=== PATIENT | female | born 1965 | race African-American/Black ===

== ENCOUNTER 2021-02-06 07:16 | Emergency (ER) | payer SELFPAY ==
--- NOTE | ~2021-02-06 | XR_ITS ---
EXAMINATION: XR ankle RT min 3V DATE: 02/06/2021 09:19 INDICATION: Lateral right ankle pain post fall TECHNIQUE: Anteroposterior, oblique, mortise, and lateral views of the right ankle were obtained. COMPARISON: None. FINDINGS: Comminuted extra articular fracture at the distal diaphysis and metaphysis of the right fibula. This includes a typical Latham type B oblique metaphyseal fracture plane which extends to the medial cortex at the level of the tibiotalar joint line with 3 mm posterolateral displacement. There is a second o blique fracture plane extending into the diaphysis extending across the medial cortex 9 cm proximal t o the tibiotalar joint line and resulting in a nondisplaced medial sided butterfly fragment. No other fractures identified. Specifically the medial and posterior malleoli as well as the talar dome remai n intact. Ankle mortise remains congruent. Joint spaces are normal. No right ankle joint effusion. Do minant soft tissue swelling about the lateral side of the ankle and distal lower leg. IMPRESSION: 1. Minimally displaced comminuted fractures of the distal right fibula. Reviewed, dictated and finalized at location A.
--- NOTE | ~2021-02-06 | XR_ITS ---
EXAMINATION: XR tibia fibula RT 2V DATE: 02/06/2021 10:01 INDICATION: Distal right fibular fracture TECHNIQUE: 1. Anteroposterior and lateral views of the right tibia and fibula were obtained. COMPARISON: Right ankle radiographs dated 02/06/2021 FINDINGS: Again seen is a minimally displaced comminuted fractures of the distal metadiaphyseal region of the r ight fibula as previously detailed. No other fractures identified. Alignment remains near-anatomic. N ormal joint spaces at the right ankle and hindfoot and visualized portion of the right knee. No right ankle joint effusion. Soft tissue swelling about the lateral aspect of the distal lower leg and ankl e. IMPRESSION: 1. Minimally displaced comminuted fracture of the distal metadiaphysis of the right fibula. No other fractures identified. Reviewed, dictated and finalized at location A. IMPRESSION: 1. Minimally displaced comminuted fracture of the distal metadiaphysis of the r ight fibula. No other fractures identified.
[2021-02-06 07:31] VITALS: BP 119/77; PULSE 81; RESP 18; TEMP 36.6; O2SAT 99
[2021-02-06 09:00] VITALS: BP 116/70; PULSE 80; RESP 18; O2SAT 97
--- NOTE | 2021-02-06 09:16 | ED.LOWEXIN ---
HPI - Extremity Injury (Lower) General Chief Complaint: Extremity Injury, Lower Stated Complaint: FELL- ANKLE PAIN Time Seen by Provider: 02/06/21 09:05 Source: patient Mode of arrival: wheelchair Limitations: no limitations History of Present Illness HPI Narrative: This is a 55-year-old female that presents to the emergency department for right ankle pain and swelling since last night. Reports she tripped over a curb. Reports falling forward. Denies hitting her head or loss of consciousness. No other injuries. Reports since she has had pain and swelling of the ankle specially in the lateral aspect. The pain is worse with movement and relieved with rest. Denies numbness. Related Data Allergies Allergy/AdvReac Type Severity Reaction Status Date / Time No Known Allergies Allergy Verified 02/06/21 07:33 Review of Systems Review of Systems: CONSTITUTIONAL: Denies fever MUSCULOSKELETAL: Reports joint pain, and myalgia. NEUROLOGIC: Denies numbness All systems reviewed & are unremarkable except as noted in HPI and below PMFSH Past Medical History Medical History (Updated 02/06/21 @ 11:38 by Carli Stone PA-C) No active medical problems Social History Social History (Updated 02/06/21 @ 09:18 by Carli Stone PA-C) Smoking status: Never smoker Substance use: never Exam Narrative: GENERAL: Well-appearing, well-nourished, and in no acute distress. HEAD: Normocephalic, atraumatic. EYES: EOMI. EXTREMITIES: Decreased active range of motion of the right ankle due to pain. Mild edema about the right lateral malleoli. Normal DP pulses. Normal sensation SKIN: Warm, dry, no rash. NEURO: No focal deficits. Alert and oriented x3. PSYCH: Normal mood and affect Course Vital Signs Vital signs: Vital Signs Temperature 98 F 02/06/21 07:31 Pulse Rate 81 02/06/21 07:31 Respiratory Rate 18 02/06/21 07:31 Blood Pressure 119/77 02/06/21 07:31 Pulse Oximetry 99 02/06/21 07:31 Temperature 98 F 02/06/21 07:31 Pulse Rate 79 02/06/21 11:02 Respiratory Rate 16 02/06/21 11:02 Blood Pressure 120/81 02/06/21 11:02 Pulse Oximetry 100 02/06/21 11:02 Procedures Orthopedic Splinting/Casting Injury #1: Splinting/Casting Date: 02/06/21 Splinting/Casting Time: 11:37 Side: right Lower Extremity Injury Location: ankle Lower Extremity Immobilizer: posterior splint Splint: customized in ED OCL: posterior Pre-Procedure Neuro Vascular Exam: normal Post-Procedure Neuro Vascular Exam: normal Other Orthopedic Equipment: crutches MDM - Extremity Injury (Lower) MDM Narrative Medical decision making narrative: Patient presents to the emergency department for right ankle pain after a fall yesterday. Patient is neurovascularly intact. Vitals are stable. Denies any other injuries. Right ankle x-ray shows a minimally displaced comminuted fracture of the distal right fibula. No other fractures identified on tib-fib x-ray. Patient placed in a short leg posterior and given crutches. Will be given orthopedics for follow-up. She is stable and felt appropriate for further outpatient evaluation. She was given warnings to return to the ER Imaging Data Radiologist's impression: ITS Impressions Ankle X-Ray 02/06/21 09:20 IMPRESSION: 1. Minimally displaced comminuted fractures of the distal right fibula. Tibia/Fibula X-Ray 02/06/21 10:05 IMPRESSION: 1. Minimally displaced comminuted fracture of the distal metadiaphysis of the right fibula. No other fractures identified. Critical Care Time Critical Care Time Critical Care Time: No Discharge Plan Discharge Clinical Impression: Closed traumatic displaced fracture of distal end of fibula Patient Disposition: Home, Self-Care Condition: Stable Instructions: Ankle Fracture (ED) Additional Instructions: Return to the emergency department if you ex
[2021-02-06] MEDS: HYDROcodone/acetaminophen (*CRX) 5-325 MG TABLET 1 TAB PO (10:47)
[2021-02-06 11:02] VITALS: BP 120/81; PULSE 79; RESP 16; O2SAT 100
== END 2021-02-06 12:06 | disposition home or self-care (01) ==
PROVIDERS: Emergency Provider Emergency Medicine
DX: S89.391A Other physeal fracture of lower end of right fibula, initial encounter for closed fracture (principal); W10.1XXA Fall (on)(from) sidewalk curb, initial encounter
CPT/HCPCS: 29515; 73590; 73610; 99284; A9270

== ENCOUNTER 2021-02-08 09:47 | Outpatient (CLI) | payer SELFPAY ==
[2021-02-08 11:20] LABS: EDCOVIDSCREEN Negative (Negative)
== END 2021-02-08 09:48 | disposition home or self-care (01) ==
PROVIDERS: Visit Provider Orthopaedic Surgery
DX: Z01.812 Encounter for preprocedural laboratory examination (principal); Z20.822 Contact with and (suspected) exposure to COVID-19
CPT/HCPCS: 87426; C9803

== ENCOUNTER 2021-02-10 03:19 | Day surgery (SDC) | payer SELFPAY ==
[2021-02-07 16:01] VITALS: BMI 33.9
[2021-02-10] VITALS (12 sets, daily range): BP systolic 110–139; BP diastolic 71–95; PULSE 66–84; RESP 8–20; TEMP 36.1–36.8; O2SAT 94–100
--- NOTE | ~2021-02-10 | XR_ITS ---
EXAMINATION: XR surgery orthopedic EXAM DATE: 02/10/2021 14:55 INDICATION: Right ankle ORIF. TECHNIQUE: Fluoroscopy used during right ankle ORIF performed by Dr. Yahir Isaac MD. Radiol ogist was not present for the imaging or procedure. Total fluoroscopic time of 68 seconds. The DAP for this procedure was 0.69 mGym2. A total of 8 images sent to PACS from the exam. FINDINGS: There is an oblique fracture through the right fibular distal metaphysis. Position, alignme nt anatomic. Images demonstrate a fibular plate, supporting screws, and also syndesmotic repair ancho r along the tibia medially. Correlate with procedure note. IMPRESSION: Fluoroscopy used during right ankle ORIF. Reviewed, dictated and finalized at location B.
--- NOTE | 2021-02-10 12:22 | WPDANESEPPF ---
Anes - Initial Pre Proc Eval Procedure: Operation Date: 02/10/21 12:00 Proposed Procedures p Open Reduction Internal Fixation Right Lateral Malleolus, Possible Open Reduction Internal Fixation Tibia/Fibula Syndesmosis - Yahir Isaac MD Date/Time: 02/10/21 12:22 Surgeon: Yahir Isaac MD Pre Op Diagnosis: Right Lateral Melleolus Fracture Patient Data Age: 55 Gender: F Height: 1.68 m Weight: 95.4 kg Allergies Allergy/AdvReac Type Severity Reaction Status Date / Time No Known Allergies Allergy Verified 02/10/21 11:46 Home Medications Medication Instructions Recorded Confirmed Type hydrocodone-acetaminophen 1 tablet PO Q6H PRN #14 tablet 02/06/21 02/10/21 Rx Patient hx anesthesia problems: none Family hx anesthesia problems: none PMFSH Past Medical History Medical History No active medical problems Surgical History Surgical History No significant past surgical history Social History Social History Smoking packs per day: 1 Smoking cigarettes per day: 20.0 Years smoked: 13 Smoking pack-years: 13.00 Smoking status: Never smoker Smoking end date: 02/08/92 Alcohol intake: current Substance use: never Spiritual care concerns: No Anes - Eval Final PreProcedure Day of Procedure 02/10/21 12:22 Patient weight: obese Heart: regular rate and rhythm Lungs: decreased breath sounds Airway: Mallampati scale class II Neurological: alert and oriented Last oral intake: >/= 8 hours ASA classification: II Emergent: no Anesthetic plan: proceed Anesthesia type and monitoring: general LMA and standard monitoring Informed Consent: The patient's anesthetic plan and its attendant risks and benefits were discussed with the patient/family/POA. Questions were solicited and answers provided to the satisfaction of the patient/family/POA.
--- NOTE | 2021-02-10 12:32 | SUR.PREOP ---
1145-HAIR REMOVAL/SCRUB WITHHELD R/T DISCOMFORT AND INSTABILITY.
[2021-02-10] MEDS: LACTATED RINGERS 1,000 ML 30 ML IV CONT ×2 (12:40→15:13)
[2021-02-10] MEDS: KETOROLAC 15 MG/ML VIAL (*BKC) IV PUSH (12:41)
--- NOTE | 2021-02-10 12:46 | WPDHPUPDATE1 ---
History and Physical Update Update Date/Time: 02/10/21 12:46 History and Physical has been reviewed, including an updated exam of the patient. There are NO changes in the patient's condition. Risks, benefits, and alternatives have been discussed and questions answered. Patient agrees to proceed with procedure.
[2021-02-10] MEDS: ceFAZolin 2 GM/D5W 50 ML 2 GM/50 ML BAG IVPB (13:02)
[2021-02-10] MEDS: fentaNYL CITRATE INJ (*CRX) 100 MCG/2 ML VIAL 25 MCG IV PUSH ×5 (15:30→17:01)
--- NOTE | 2021-02-10 15:40 | P.OP_ITS ---
Procedure Note - Detailed Date of Procedure 02/10/21 Pre-op Diagnosis Right Lateral Malleolus Fracture 2. Syndesmosis disruption Post-op Diagnosis same Procedure Performed 1. ORIF distal fibula fracture, right. 2. ORIF ankle syndesmosis, right. Surgeon Yahir Isaac MD Director Of Clinical Applications Birgit Fry PA-C Anesthesia general Findings Significant comminution and proximal extension. Proximal bone fragment was very robust. Plate was contoured and rotated to allow for a posterior-lateral application on the flat surface of the proximal fibula. Multiple fracture lines were provisionally held with K-wires. The fracture fragments keyed anatomically which indicated excellent reduction of fibular length. Syndesmosis gapping was occurring and additional fixation with a syndesmosis tight rope provided excellent stability. Description of Procedure With a general anesthetic was administered. The limb was prepped and draped in the usual sterile fashion with a well-padded tourniquet high on the thigh. A bump was placed under the hip. The limb was exsanguinated and the tourniquet inflated to 300 millimeters of mercury during the procedure. A longitudinal incision was created at the distal fibula. Careful dissection was carried down to bone. Perineal nerve branches were protected. The fracture was carefully exposed. Callus and debris was irrigated from the wound. The fracture was brought out to length. Reduction was accomplished with the reduction forceps. Provisional fixation held with several K-wires from anterior to posterior. Significant comminuted fragment through the middle area the fracture. The fix ation plate was contoured. Fixation was performed with a combination of cortical and cancellous screws. Locking screws were used distally and 2 proximally. A single anterior to posterior 2.7 mm lag screw was placed into the proximal posterior fragment. Fluoroscopy was used throughout the procedure to confirm anatomic reduction and appropriate placement of the implants. The ankle mortise was tested and found to be unstable. An anterior medial fragment of the fibula was found to be where much of the motion was occurring. One of the screws was then exchanged for the suture button. This provided excellent reduction and stability of the ankle mortise. The tourniquet was released. Meticulous hemostasis was obtained. Wound was closed in layers with 2-0 Vicryl suture 3-0 Monocryl suture and sheldon. A sterile splint with padding was applied. The patient was extubated and brought to the recovery room in stable condition. There were no complications. Physician assistant professor of education, Birgit Fry PA-C, required for surgery; including patient positioning, draping, tissue retraction, maintaining fracture reduction during provisional pin placement, wound closure, and dressing placement. Implants Arthrex periarticular distal fibula plate. Multiple locking and nonlocking screws 3.5 mm and 2.7 mm distally. 2.7 mm anterior to posterior lag screw. Syndesmosis tight rope. Estimated Blood Loss -20.0 Drains No Packing No Complications No immediate complications Condition stable Disposition PACU
[2021-02-10] MEDS: oxyCODONE HCL (*CRX) 5 MG TAB IR PO (16:41)
== END 2021-02-10 17:45 | disposition home or self-care (01) ==
PROVIDERS: Visit Provider Orthopaedic Surgery
PROC: (CPT 27829; principal; 2021-02-10 12:00)
DX: S82.61XA Displaced fracture of lateral malleolus of right fibula, initial encounter for closed fracture (principal); S93.431A Sprain of tibiofibular ligament of right ankle, initial encounter; W01.0XXA Fall on same level from slipping, tripping and stumbling without subsequent striking against object, initial encounter; Z87.891 Personal history of nicotine dependence; E66.9 Obesity, unspecified; Z68.33 Body mass index [BMI] 33.0-33.9, adult
CPT/HCPCS: 27829; 27792; A9270; C1713; C1769; J0690; J1100; J1170; J1885; J2250; J2370; J2405; J2704; J3010; J7120

== ENCOUNTER 2024-05-18 18:45 | Emergency (ER) | payer OTHER, SELFPAY ==
--- NOTE | ~2024-05-18 | XR_ITS ---
EXAM: XR foot LT min 3V DATE: 05/18/2024 19:20 HISTORY: jammed on stair edge today. 1st digit MTP joint . COMPARISON: None available. FINDINGS: Normal mineralization. Oblique fracture in the proximal aspect of the first distal phalanx , with intra-articular extension. No lytic or blastic lesion. Mild degenerative change at the first M TP joint. Status post hallux valgus repair/bunionectomy. Fixation staple in the first proximal phalan x. No erosion or periosteal change. Soft tissues within normal limits. IMPRESSION: Oblique, nondisplaced intra-articular fracture of the proximal aspect of the left first d istal phalanx. Reviewed, dictated and finalized at location K. ERCIAL CONSTRUCTION ESTIMATOR IMPRESSION: Oblique, nondisplaced intra-articular fracture of the proximal aspe ct of the left first distal phalanx.
--- NOTE | 2024-05-18 19:00 | ED_ITS ---
HPI - Extremity Injury (Lower) General Chief Complaint: Extremity Injury, Lower Stated Complaint: LT Foot Injury Time Seen by Provider: 05/18/24 18:50 Source: patient Mode of arrival: ambulatory Limitations: no limitations History of Present Illness HPI Narrative: Patient is a 58-year-old female who presents with pain in left great toe after stubbing it into this depth. Patient had surgery in 2004 on toe for bunion correction. Patient able to walk unassisted with some discomfort. Patient reports mild bruising and swelling. Related Data Home Medications Medication Instructions Recorded Confirmed ruxolitinib 1.5 % topical cream 1 applic topical PRN PRN Rash 05/18/24 05/18/24 (Opzelura) Allergies Allergy/AdvReac Type Severity Reaction Status Date / Time No Known Allergies Allergy Verified 05/18/24 19:07 Review of Systems Review of Systems: All systems reviewed & are unremarkable except as noted in HPI and below Constitutional: Constitutional: Denies body ache(s), Denies chills, Denies fatigue, Denies fever(s), Denies headache(s), Denies malaise and Denies weakness Eyes: Eyes: Denies blurry vision, Denies irritation and Denies loss of vision ENT: Denies otalgia, Denies headache(s), Denies nasal discharge, Denies sinus pain and Denies sore throat Cardiovascular: Cardiovascular: Denies chest pain, Denies irregular heart rhythm and Denies dyspnea Respiratory: Respiratory: Denies dyspnea Gastrointestinal: Gastrointestinal: Denies abdominal pain, Denies melena, Denies hematochezia, Denies diarrhea, Denies nausea and Denies vomiting Musculoskeletal: Musculoskeletal: Denies back pain, Denies myalgias and Reports arthralgias Integumentary/Breasts: Skin/Breast: Denies pruritus and Denies rash Neurologic: Denies headache(s), Denies loss of vision and Denies weakness Psychiatric: Psychiatric: Reports no additional psychiatric complaints Endocrine: Endocrine: Denies fatigue PMFSH Past Medical History Medical History No active medical problems Surgical History Surgical History Status post ORIF of fracture of ankle (~02/10/21) Right ORIF Distal Fibula Social History Social History Smoking packs per day: 1 Smoking cigarettes per day: 20.0 Years smoked: 13 Smoking pack-years: 13.00 Smoking status: Never smoker Smoking end date: 02/08/92 Alcohol intake: current Substance use: never Living arrangements: with family Spiritual care concerns: No Comments At time of signature, agree with nursing past medical, surgical, social and family history. There is no relevant family history pertinent to the presenting complaint. Exam Const: General: cooperative, healthy appearing, comfortable, no acute distress and well nourished Nutritional Appearance: well nourished Orientation/consciousness: patient oriented x3 Limitations: no limitations HENMT: Head: normal to inspection, normocephalic and atraumatic Ears: hearing grossly normal bilaterally and external ears normal Face/Nose/Sinus: Normal external nose present, normal facial exam and face symmetric Face and sinus: normal facial exam and face symmetric Mouth: Yes lip normal Eyes: General: appearance normal, both eyes and all related structures Alignment and Position: alignment normal and position normal Periorbital: periorbital findings normal Eyelids: eyelids normal Pupils: Equal, round and reactive pupils present EOM: EOMs intact bilaterally Neck: Neck: normal visual inspection, full ROM and supple Chest: Chest palpation & inspection: normal inspection of the chest Resp: Effort & Inspection: normal respiratory effort and able to speak in complete sentences Auscultation: clear to auscultation bilaterally Cardio: Rate: regular rate Rhythm: regular rhythm Heart sounds: S1 normal heart sound present and S2 normal heart sound present GI: Inspection: normal to inspection Skin: General skin exam: normal color and no rashes or lesions noted Neuro: General: patient oriented x3 and moves all extremities Cranial nerves: Yes Equal, round and reactive pupils present Speech: normal speech Gait exam (Neuro): Normal gait present Extrem: General: normal to inspection, full ROM and no edema Left lower extremity: foot Details: normal capillary refill, tenderness Location: of the great toe Location: at the MTP joint, abnormal ROM of toe Details: pain with active ROM Location: of the great toe, edema Location: of the great toe Location: at the MTP joint, ecchymosis plantar great toe , vascular exam Details: dorsalis pedis pulse present and normal capillary refill, tendon exam active flexion normal of all toes and active extension normal of all toes and motor-sensory exam; no puncture wound Psych: Appearance: grossly normal and well kempt Mental Status: mental status grossly normal Speech and movement: Normal speech and movement present Affect: normal affect Attitude: cooperative Thought process: Normal thought process present Course Course Emergency Course: Patient is aware of diagnosis, understands and agrees to treatment plan. Anticipatory guidance given. Patient agrees to follow-up as directed and is aware of reasons to seek care at the emergency department. Portions of this record may have been created with voice recognition software Level of Care: Express Care Visit Vital Signs Vital signs: Reviewed MDM - Extremity Injury (Lower) MDM Narrative Medical decision making narrative: Exam findings show toe fracture. Jamil tape to 2nd toe and postop shoe placed; patient is non-toxic appearing and is in no distress.? Patient is appropriate for outpatient treatment and follow-up. Discharge instructions reviewed with patient, as well as provided in writing per nursing staff. The instructions also include specific and strict return/GO TO THE ER as well as f/u information. All questions have been answered, and the patient deny any further questions with discharge and discharge plan. Differential Diagnosis Differential diagnosis: Likely fracture of toe and other (Toe sprain) Medical Records Attestation: I reviewed the patient's medical records. Imaging Data Radiologist's impression: EXAM: XR foot LT min 3V DATE: 05/18/2024 19:20 HISTORY: jammed on stair edge today. 1st digit MTP joint . COMPARISON: None available. FINDINGS: Normal mineralization. Oblique fracture in the proximal aspect of the first distal phalanx, with intra-articular extension. No lytic or blastic lesion. Mild degenerative change at the first MTP joint. Status post hallux valgus repair/bunionectomy. Fixation staple in the first proximal phalanx. No erosion or periosteal change. Soft tissues within normal limits. IMPRESSION: Oblique, nondisplaced intra-articular fracture of the proximal aspect of the left first distal phalanx. Discharge Plan Discharge Clinical Impression: Fracture of toe Qualifiers: Encounter type: initial encounter Toe: great toe Fracture type: closed Phalanx: distal Fracture alignment: nondisplaced Laterality: left Qualified Code(s): S92.425A - Nondisplaced fracture of distal phalanx of left great toe, initial encounter for closed fracture Patient Disposition: Home, Self-Care Condition: Stable Instructions: Toe Fracture (ED) Additional Instructions: Please rest, ice and elevate the affected extremity. Please take Motrin 600mg every 8 hours, as needed, for pain (take with food). Follow up with Orthopedic Surgery in 1-2 days for further evaluation - please call for an appointment. Use postop shoe. Please go to ER immediately for increased pain, tingling/numbness, swelling, redness, and fever For pain, you may take: Tylenol 650-1000mg by mouth every 4-6 hours. Do not exceed 4000mg in 24 hours. Advil (Ibuprofen) 600 mg by mouth every 6 hours. Do not exceed 2400mg in 24 hours. 8 AM: Tylenol 11 AM: Ibuprofen 2 PM: Tylenol 5 PM: Ibuprofen 8 PM: Tylenol 11 PM: Ibuprofen 2 AM: Tylenol 5 AM: Ibuprofen Prescriptions: No Action Opzelura 1.5 % cream 1 applic TOPICAL PRN PRN (Reason: Rash) Follow-up/Referrals: Bacilio Sanford MD [Physician] - 3 Days UNKNOWN,DOCTOR [Non-Staff] - Time of Disposition: 19:37
[2024-05-18 19:09] VITALS: BP 106/70; PULSE 90; RESP 18; TEMP 36.7; O2SAT 100
== END 2024-05-18 19:41 | disposition home or self-care (01) ==
PROVIDERS: Emergency Provider Nurse Practitioner Family
DX: S92.425A Nondisplaced fracture of distal phalanx of left great toe, initial encounter for closed fracture (principal); X58.XXXA Exposure to other specified factors, initial encounter; Z87.891 Personal history of nicotine dependence
CPT/HCPCS: 73630; 99214; G0463